=== PATIENT | female | born 1965 | race African-American/Black ===

== ENCOUNTER 2016-06-13 03:08 | Emergency (ER) | payer OTHER ==
--- NOTE | ~2016-06-13 | CR72 ---
[facility]. [facility] A Service of [facility] & [facility] RADIOLOGY TEXT RESULTS PATIENT: ADRIENNE MAYO LOCATION: SED : 69 UNIT #: [id number] AGE: [address]: Amara Moody MD SEX: F ORDER DR: [id number] [address] [address] [id number] E MR#: [id number] Acc #: [id number] NAME: ADRIENNE MAYO : 1965 SEX: F STUDY DATE/TIME: 06/13/2016 2:51 UNIT: SED ROOM: STUDY DESCRIPTION: CR Chest Single View Portable Attending Physician: Amara Moody M.D. Ordering Physician: Amara Moody M.D. Primary Care Physician: Yandy Masters A.P.R.N. MEDICAL IMAGING REPORT This report is preliminary unless electronic signature is present. EXAM Chest, single view portable HISTORY Cough, congestion for 2 days. COMPARISON STUDIES 09/08/15 FINDINGS A portable view of the chest was obtained. The heart size and vascularity are normal. The lungs are clear. The bones are normal. IMPRESSION No active disease. Dictated by... Sandro Pineda M.D. THIS IS AN ELECTRONICALLY VERIFIED REPORT Sandro Pineda M.D. at 06/14/2016 12:29 AM JENS/esdras TD: 06/13/2016 22:59 JOB #: [id number] MEDICAL IMAGING REPORT Page 1 of 1
[~2016-06-13 03:08] MED LIST: ALBUTEROL17 G1 IH; ALBUTEROL17 GM; ALBUTEROL17 GM INH; AMOXICILLIN875 MG PO; ANUSOL-HC CREAM30 G1 EXT; ANXIETY MED; AUGMENTIN PO; AUGMENTIN400 MG PO; BENADRYL ALLERG25 M1 PO; CELEXA; CELEXA PO; CELEXA10 MG PO; CELEXA20 MG PO; CLINDAMYCIN HC300 MG PO; COLACE50 MG PO; COMBIVENT U/D3 ML INH; CONGESTION MED; IBUPROFEN; IBUPROFEN600 MG PO; IBUPROFEN800 MG PO; KEFLEX PO; KEFLEX500 MG PO; LORTAB 7.5-5001 TAB PO; LORTAB PO; MEDROL DOSEPAK4 MG PO; MOTRIN600 M1; NORFLEX100 MG PO; NORVASC; OXYCODON-ACETA1 EAC1 PO; PHENERGAN W/CO120 ML PO; PREDNISONE PO; ROBITUSSIN A-C S5 ML PO; ROBITUSSIN100 MG/52 PO; TESSALON200 MG PO; TYLENOL #3 PO; ULTRAM PO; VOLTAREN75 MG PO; ZITHROMAX1 G/PKT PO; [UNRECOGNIZED DRUG - OTHER]; [UNRECOGNIZED DRUG - OTHER] SUBQ; [UNRECOGNIZED DRUG - REMARK]; [UNRECOGNIZED DRUG - REMARK]
[2016-06-14] MEDS ORDERED: PREDNISONE (02:47)
[2016-06-14] MEDS ORDERED: OMNICEF (02:48)
[2016-06-14] MEDS ORDERED: MUSCLE RELAXER (02:48)
[2016-06-14] MEDS ORDERED: SYMBICORT (02:48)
== END 2016-06-13 03:59 | disposition home or self-care (01) ==
LOC: SED 03:08
DX: J44.1 Chronic obstructive pulmonary disease with (acute) exacerbation (principal); J20.9 Acute bronchitis, unspecified; J44.0 Chronic obstructive pulmonary disease with (acute) lower respiratory infection; Z86.73 Personal history of transient ischemic attack (TIA), and cerebral infarction without residual deficits; F17.210 Nicotine dependence, cigarettes, uncomplicated
CPT/HCPCS: 71010; 94640; 96365; 96375; 99284; J2930; J3475

== ENCOUNTER 2016-06-14 03:17 | Emergency (ER) | payer OTHER ==
--- NOTE | ~2016-06-14 | CT16 ---
[facility] A Service of [facility] RADIOLOGY TEXT RESULTS PATIENT: ADRIENNE MAYO LOCATION: SED : 69 UNIT #: [id number] AGE: [address]: Jessie Campbell MD SEX: F ORDER DR: [id number] [address] [address] [id number] E MR#: [id number] Acc #: [id number] NAME: ADRIENNE MAYO. : 1965 SEX: F STUDY DATE/TIME: 06/14/2016 4:27 UNIT: SED ROOM: STUDY DESCRIPTION: CT Angio Chest for PE Attending Physician: Jessie Campbell M.D. Ordering Physician: Jessie Campbell M.D. Primary Care Physician: Yandy Masters A.P.R.N. MEDICAL IMAGING REPORT This report is preliminary unless electronic signature is present. EXAM CTA of the chest with pulmonary embolus protocol. INDICATIONS Cough, wheezing, shortness of air for 2 days. Comparison study 02/20/2013. TECHNIQUE Patient given 80 mL of 05/01/1969 and spiral imaging was formed through the chest. 3-D reconstructions of pulmonary arteries were generated. This CT exam was performed with one or more of the following radiation dose reduction techniques: automatic exposure control, adjustment of mA and/or kV according to patient size, and iterative reconstruction. FINDINGS There is optimal opacification of the pulmonary arteries and there is no CT evidence of pulmonary embolus. The aorta is normal in size and there is no dissection. There is no mediastinal or hilar adenopathy. The visualized portions of upper abdomen are normal. The lungs are clear. IMPRESSION Normal study. No CT evidence of pulmonary embolus or aortic dissection. No active disease. Dictated by... Sandro Pineda M.D. THIS IS AN ELECTRONICALLY VERIFIED REPORT Sandro Pineda M.D. at 06/14/2016 9:55 PM FEL/cs [facility] A Service of [facility] RADIOLOGY TEXT RESULTS PATIENT: ADRIENNE MAYO LOCATION: [facility] : [birth year] UNIT #: [id number] AGE: [address]: Jessie Campbell MD SEX: F ORDER DR: TD: 06/14/2016 19:22 JOB #: [id number] MEDICAL IMAGING REPORT Page 1 of 1
[~2016-06-14 03:17] MED LIST changes: +MUSCLE RELAXER; +OMNICEF; +PREDNISONE; +SYMBICORT
[2016-06-14 03:54] LABS: HEMATOCRIT 39.2 % (35.0-45.0); HEMOGLOBIN 12.8 gm/dL (12.0-16.0); LYMPHOCYTE# 2.3 X10e3 (1.0-3.5); LYMPHOCYTE% 9.4 % (17.0-45.0); MEAN CELL VOLUME 76.8 FL (83-96); MEAN CORPUSCULAR HEMOGLOBIN 25.1 PG (28-34); MEAN CORPUSCULAR HGB CONC 32.7 g/dL (30-36); MEAN PLATELET VOLUME 8.4 FL (6.5-11.5); MONOCYTE# 1.6 X10e3 (0-1.0); MONOCYTE% 6.5 % (3.0-12.0); NEUTROPHIL# 20.4 X10e3 (1.5-7.1); NEUTROPHIL% 84.1 % (40-75); PLATELET COUNT 316 X10e3 (140-420); RED CELL DISTRIBUTION WIDTH 15.9 % (11.0-15.5); WHITE BLOOD COUNT 24.2 X10e3 (4.0-10.5)
[2016-06-14 03:58] LABS: DIFF IND YES
[2016-06-14 04:02] LABS: INFLUENZA A NEG (NEG); INFLUENZA B NEG (NEG)
[2016-06-14 04:11] LABS: CALCIUM SERUM 9.3 mg/dL (8.4-10.2); GLOM FILT RATE Estimated 77.2 mL/min (>60); POTASSIUM 4.4 mmol/L (3.5-5.1)
[2016-06-14 04:20] LABS: ANISOCYTOSIS SL; PLATELET ESTIMATE NORMAL (NORMAL)
== END 2016-06-14 06:21 | disposition home or self-care (01) ==
LOC: SED 03:17
PROVIDERS: Student in an Organized Health Care Education/Training Program
DX: J44.1 Chronic obstructive pulmonary disease with (acute) exacerbation (principal); J20.9 Acute bronchitis, unspecified; J44.0 Chronic obstructive pulmonary disease with (acute) lower respiratory infection; J18.9 Pneumonia, unspecified organism
CPT/HCPCS: 36415; 69210; 71275; 80048; 85025; 87804; 96374; 96375; 99283; 99284; J2270; J2405; J2930; Q9967